=== PATIENT | female | born 1955 | race Hispanic/Latino ===

== ENCOUNTER 2018-02-28 04:20 | Emergency (ER) | payer MEDICARE, OTHER ==
[~2018-02-28] VITALS: Ht 167.6 cm; Wt 86.2 kg
[~2018-02-28 04:20] MED LIST: CEFTIN250 MG PO; CYMBALTA30 MG PO; FENOFIBRATE145 MG PO; FUROSEMIDE40 MG PO; GABAPENTIN300 MG PO; GLIPIZIDE ER10 MG PO; LEVOTHYROXINE75 MCG PO; LOSARTAN POTAS100 MG PO; LYRICA75 MG PO; METOPROLOL SUC100 MG PO; OXAPROZIN600 MG PO; PRAVASTATIN SOD80 MG PO; TRAZODONE HCL100 MG PO
[2018-02-28] MEDS ORDERED: ACETAMINOPHEN 325 MG TAB PO ONE (04:30)
[2018-02-28] MEDS ORDERED: ASPIRIN 81 MG CHEW TAB PO ONE (04:30)
[2018-02-28 05:02] LABS: BASOPHILS # (AUTO) 0.1 (0.0-0.1); BASOPHILS % 0.4 % (0.0-1.0); EOSINOPHILS % 0.1 % (0.0-6.0); HEMATOCRIT 43.4 % (34.2-44.1); HEMOGLOBIN 14.3 g/dL (12.0-16.0); LYMPHOCYTES # (AUTO) 1.5 (1.0-3.2); LYMPHOCYTES % 10.8 % (18.0-39.1); MEAN CORPUSCULAR HEMOGLOBIN 29.9 pg (28-32); MEAN CORPUSCULAR HGB CONC 32.9 g/dL (31-35); MEAN CORPUSCULAR VOLUME 90.6 fL (81-99); MONOCYTES # (AUTO) 0.7 (0.2-0.8); MONOCYTES % 4.6 % (4.4-11.3); NEUTROPHILS # (AUTO) 11.8 (2.1-6.9); NEUTROPHILS % 82.5 % (38.7-80.0); PLATELET COUNT 234 x10e3/uL (140-360); RED BLOOD COUNT 4.79 x10e6/uL (3.6-5.1); RED CELL DISTRIBUTION WIDTH 12.8 % (11.7-14.4)
[2018-02-28 05:10] LABS: CLARITY,URINE SL CLOUDY (CLEAR); COLOR,URINE YELLOW (YELLOW); LEUKOCYTE ESTERASE ,URINE TRACE (NEGATIVE); NITRITE,URINE NEGATIVE (NEGATIVE)
[2018-02-28 05:11] LABS: BACTERIA,URINE FEW /HPF; BILIRUBIN,URINE NEGATIVE (NEGATIVE); EPITHELIAL CELLS,URINE FEW /LPF; KETONES,URINE NEGATIVE (NEGATIVE); MUCUS,URINE FEW (RARE); PROTEIN,URINE DIPSTICK TRACE (NEGATIVE); RBC,URINE 0-5 /HPF (0-5); URINE UROBILINOGEN 0.2 mg/dL (0.2 - 1); WBC,URINE (MAN) 21-50 /HPF (0-5)
[2018-02-28 05:19] LABS: ALBUMIN 3.9 g/dL (3.5-5.0); ANION GAP 12.9 mmol/L (8-16); CALCIUM 9.8 mg/dL (8.4-10.2); CREATININE, SERUM 0.99 mg/dL (0.57-1.11); POTASSIUM 3.9 mmol/L (3.5-5.1)
[2018-02-28 05:24] LABS: STREPTOCOCCUS GRP A ANTIGEN POSITIVE (NEGATIVE)
[2018-02-28 05:30] LABS: CREATINE KINASE MB 0.3 ng/mL (0-5.0)
[2018-02-28 05:33] LABS: INFLUENZAE A&B ANTIGEN (RAPID) NEGATIVE (NEGATIVE)
[2018-02-28] MEDS ORDERED: ONDANSETRON HCL INJ 2 MG/ML VIAL IV STA (05:41)
[2018-02-28] MEDS ORDERED: CEFTRIAXONE SOD 1 GM VIAL IV ONE (05:45)
--- NOTE | 2018-02-28 05:46 | Diagnostic Imaging Report ---
EXAM: CHEST SINGLE (PORTABLE), AP 1 view INDICATION: Fever, not feeling well COMPARISON: None FINDINGS: LINES/TUBES: None LUNGS: No consolidations or edema. PLEURA: No effusions or pneumothorax. HEART AND MEDIASTINUM: Normal size and contour. BONES AND SOFT TISSUES: No acute findings. IMPRESSION: No evidence of pneumonia. Signed by: Dr. Paige Gotti M.D. on 02/28/2018 5:42 AM
[2018-02-28 06:44] VITALS: BP 166/93
== END 2018-02-28 06:48 | disposition home or self-care (01) ==
LOC: ER 04:20
DX: R50.9 Fever, unspecified (principal); N30.90 Cystitis, unspecified without hematuria; J02.0 Streptococcal pharyngitis; I10 Essential (primary) hypertension; E11.40 Type 2 diabetes mellitus with diabetic neuropathy, unspecified; M79.7 Fibromyalgia
CPT/HCPCS: 36415; 71045; 80053; 81001; 82550; 82553; 83518; 83605; 84484; 85025; 87040; 87086; 87400; 99284; J0696; J2405

== ENCOUNTER → 2020-02-29 | Outpatient (CLI) | payer MEDICARE, OTHER | END | disposition home or self-care (01) | LOC: RAD 13:28 | PROVIDERS: ATTEND Family Medicine | DX: R05 Cough (principal) | CPT/HCPCS: 71046 ==

== ENCOUNTER → 2021-10-15 | Outpatient (CLI) | payer MEDICARE, OTHER | LOC: RAD 11:56 | PROVIDERS: ATTEND Family Medicine | DX: M19.011 Primary osteoarthritis, right shoulder (principal) ==

== ENCOUNTER 2022-09-09 12:11 | Outpatient (RCR) | payer MEDICARE, OTHER | END 2022-09-29 | LOC: PT 12:11 | PROVIDERS: ATTEND Specialist | DX: S83.242A Other tear of medial meniscus, current injury, left knee, initial encounter (principal); S83.241A Other tear of medial meniscus, current injury, right knee, initial encounter ==

== ENCOUNTER → 2022-09-22 | Outpatient (CLI) | payer MEDICARE | LOC: MRI 07:47 | PROVIDERS: ATTEND Physician Assistant | DX: S46.011A Strain of muscle(s) and tendon(s) of the rotator cuff of right shoulder, initial encounter (principal) ==

== ENCOUNTER 2022-10-01 08:04 | Outpatient (RCR) | payer MEDICARE | END 2022-10-29 | LOC: PT 08:04 | PROVIDERS: ATTEND Specialist | DX: S83.242A Other tear of medial meniscus, current injury, left knee, initial encounter (principal); S83.241A Other tear of medial meniscus, current injury, right knee, initial encounter ==

== ENCOUNTER 2023-08-29 07:00 | Outpatient (RCR) | payer MEDICARE, OTHER ==
[~2023-08-29 07:00] MED LIST changes: +ASPIRIN81 MG PO; +ATORVASTATIN CA80 MG PO; +BENICAR20 MG PO; +HYDRALAZINE HC100 MG PO; +JANUVIA100 MG PO; +METFORMIN HCL500 MG PO; +PIOGLITAZONE HC45 MG PO; +TERAZOSIN HCL5 MG PO
== END 2023-08-30 ==
LOC: PT 07:00
PROVIDERS: ATTEND Physician Assistant
DX: Z47.89 Encounter for other orthopedic aftercare (principal); Z96.651 Presence of right artificial knee joint

== ENCOUNTER 2023-10-04 06:43 | Outpatient (RCR) | payer MEDICARE, OTHER | END 2023-10-30 | LOC: PT 06:43 | PROVIDERS: ATTEND Physician Assistant | DX: Z47.89 Encounter for other orthopedic aftercare (principal); Z96.651 Presence of right artificial knee joint ==